=== PATIENT | female | born 1960 | race African-American/Black ===

== ENCOUNTER 2018-01-01 18:54 | Inpatient (IN) | payer MEDICAID ==
[~2018-01-01] VITALS: Ht 167.6 cm; Wt 82.3 kg
[2018-01-01 19:52] LABS: Basophils # (auto) 0 uL; Basophils % (auto) 0.6 % (0.0-2.0); Eosinophils # (auto) 0.2 uL; Eosinophils % (auto) 3.7 % (0.0-7.0); Hematocrit 40.3 % (36.0-46.0); Hemoglobin 13.6 g/dL (12.2-16.2); Lymphocytes # (auto) 2.7 uL; Lymphocytes % (auto) 43.7 % (10.0-50.0); Mean Corpuscular Hemoglobin 29.3 pg (28.0-32.0); Mean Corpuscular Hgb Conc. 33.9 g/dL (32.0-36.0); Mean Corpuscular Volume 86.4 fL (80.0-100.0); Monocytes # (auto) 0.6 uL; Neutrophils # (auto) 2.6 uL; Platelet Count (auto) 170 10^3/uL (140-450); Red Blood Cells 4.66 10^6/uL (4.0-5.20); Red Cell Distribution Width 13.1 % (11.8-14.3); White Blood Cell 6.3 10^3/uL (4.4-10.8)
[2018-01-01 20:04] LABS: INR 1.14 (0.9-1.15); Prothrombin Time 12.1 sec (9.27-12.13)
[2018-01-01 20:16] LABS: Albumin 3.5 g/dL (3.4-5.0); BUN/Creatinine Ratio 14.5; Bilirubin, Total 0.5 mg/dL (0.2-1.0); Calcium 8.6 mg/dL (8.5-10.1); Potassium 3.8 mmol/L (3.5-5.1); Total Protein 8.9 g/dL (6.4-8.2)
[2018-01-01 20:22] LABS: Blood Alcohol < 3.0 mg/dL (0-5)
[2018-01-01 20:54] LABS: Urine Bacteria FEW /hpf (None Seen); Urine Blood 1+ /uL (Negative); Urine Hyaline Cast FEW /lpf (0 - 2); Urine Mucus FEW (None Seen); Urine Specific Gravity 1.024 (1.001-1.035); Urine WBC 7 /hpf (0 - 5)
[2018-01-01 21:15] LABS: Alcohol, Urine < 3.0 mg/dL (0-5); Amphetamine Screen, Urine NEGATIVE (NEGATIVE); Barbiturate Scree,Urine NEGATIVE (NEGATIVE); Benzodiazephine Screen, Urine NEGATIVE (NEGATIVE); Cannabinoid Screen, Urine POSITIVE (NEGATIVE); Cocaine Screen, Urine NEGATIVE (NEGATIVE); Opiate Scree,Urine POSITIVE (NEGATIVE); Phencyclidine Screen, Urine NEGATIVE (NEGATIVE)
[2018-01-01] MEDS ORDERED: ACETAMINOPHEN 325 MG TAB PO ONE (22:00)
[2018-01-01] MEDS ORDERED: LEVOFLOXACIN 750MG 150 ML IV ONE (22:30)
[2018-01-01] MEDS ORDERED: diphenhdrAMINE HCL 50 MG/1 ML VL ONE (22:57)
[2018-01-01] MEDS ORDERED: methylPREDNISolone SOD SUCC 125 MG/2 ML VL IV ONE (23:00)
[2018-01-01] MEDS ORDERED: diphenhdrAMINE HCL 50 MG/1 ML VL IV ONE (23:00)
[2018-01-01] MEDS ORDERED: CIPROFLOXACIN 400MG/200ML 200 ML IV ONE (23:00)
[2018-01-01] MEDS ORDERED: VANCOMYCIN 1GM/250ML 250 ML IV ONE (23:15)
[2018-01-01] MEDS ORDERED: TEMAZEPAM 15 MG CAP PO PRN (23:45)
[2018-01-01] MEDS ORDERED: IBUPROFEN 400 MG TAB PO PRN (23:45)
[2018-01-02 00:50] VITALS: BP 127/69
[2018-01-02 01:14] LABS: Cholesterol 130 mg/dL (< 200); HDL Cholesterol 32 mg/dL (40-59); LDL Cholesterol 88 mg/dL (< 100); Triglycerides 107 mg/dL (< 150)
[2018-01-02] MEDS: ONDANSETRON HCL 4 MG/2 ML VIAL IV PRN ×2 (01:18→22:25)
[2018-01-02] MEDS: traMADol HCL 50 MG TAB PO PRN ×3 (01:21→16:36)
[2018-01-02] MEDS ORDERED: METH10TA6 PO (03:49)
[2018-01-02 05:37] LABS: Basophils # (auto) 0 uL; Basophils % (auto) 0.6 % (0.0-2.0); Eosinophils # (auto) 0 uL; Eosinophils % (auto) 0.4 % (0.0-7.0); Hemoglobin 13.5 g/dL (12.2-16.2); Lymphocytes # (auto) 1.1 uL; Lymphocytes % (auto) 26.6 % (10.0-50.0); Mean Corpuscular Hemoglobin 29.2 pg (28.0-32.0); Mean Corpuscular Hgb Conc. 33.6 g/dL (32.0-36.0); Mean Corpuscular Volume 86.7 fL (80.0-100.0); Monocytes # (auto) 0.1 uL; Monocytes % (auto) 3.6 % (0.0-12.0); Neutrophils # (auto) 2.8 uL; Neutrophils % (auto) 68.8 % (37.0-80.0); Nucleated Red Blood Cells % 0.1 %; Platelet Count (auto) 167 10^3/uL (140-450); Red Blood Cells 4.62 10^6/uL (4.0-5.20); Red Cell Distribution Width 13.3 % (11.8-14.3); White Blood Cell 4.1 10^3/uL (4.4-10.8)
[2018-01-02 05:40] VITALS: BP 102/50
[2018-01-02 06:06] LABS: Albumin 3.1 g/dL (3.4-5.0); BUN/Creatinine Ratio 23.2; Calcium 8.6 mg/dL (8.5-10.1); Potassium 4.2 mmol/L (3.5-5.1)
[2018-01-02 06:08] LABS: Bilirubin, Total 0.5 mg/dL (0.2-1.0); Total Protein 8.3 g/dL (6.4-8.2)
[2018-01-02] MEDS: cefTRIAXone 1GM/10ml IVPUSH 10 ML IV SCH (08:19)
[2018-01-02 08:57] VITALS: BP 103/56
[2018-01-02] MEDS: SODIUM CHLORIDE 0.9% 1,000 ML IV SCH (10:15)
[2018-01-02 11:55] VITALS: BP 111/81
[2018-01-02 21:42] VITALS: BP 109/61
[2018-01-03] MEDS: SODIUM CHLORIDE 0.9% 1,000 ML IV SCH ×2 (02:55→19:35)
[2018-01-03 05:09] VITALS: BP 125/68
[2018-01-03 06:03] LABS: Basophils # (auto) 0 uL; Basophils % (auto) 0.2 % (0.0-2.0); Eosinophils # (auto) 0 uL; Eosinophils % (auto) 0.4 % (0.0-7.0); Hematocrit 38.9 % (36.0-46.0); Hemoglobin 13.1 g/dL (12.2-16.2); Lymphocytes # (auto) 3.4 uL; Lymphocytes % (auto) 31.2 % (10.0-50.0); Mean Corpuscular Hemoglobin 29.3 pg (28.0-32.0); Mean Corpuscular Hgb Conc. 33.6 g/dL (32.0-36.0); Monocytes # (auto) 0.8 uL; Monocytes % (auto) 7.7 % (0.0-12.0); Neutrophils # (auto) 6.5 uL; Neutrophils % (auto) 60.5 % (37.0-80.0); Nucleated Red Blood Cells % 0.2 %; Platelet Count (auto) 192 10^3/uL (140-450); Red Blood Cells 4.47 10^6/uL (4.0-5.20); Red Cell Distribution Width 13.2 % (11.8-14.3); White Blood Cell 10.8 10^3/uL (4.4-10.8)
[2018-01-03 06:23] LABS: Potassium 3.9 mmol/L (3.5-5.1)
[2018-01-03 06:28] LABS: Albumin 3.2 g/dL (3.4-5.0); BUN/Creatinine Ratio 19.4; Calcium 8.2 mg/dL (8.5-10.1)
[2018-01-03 06:31] LABS: Bilirubin, Total 0.4 mg/dL (0.2-1.0); Total Protein 8.5 g/dL (6.4-8.2)
[2018-01-03 08:30] VITALS: BP 118/71
[2018-01-03 09:00] VITALS: BP 118/71
[2018-01-03] MEDS: cefTRIAXone 1GM/10ml IVPUSH 10 ML IV SCH (09:36)
[2018-01-03] MEDS ORDERED: fentaNYL CITRATE 100 MCG/2 ML VL ONE (10:05)
[2018-01-03] MEDS ORDERED: MIDAZOLAM HCL 1MG/1ML-2 ML VIAL ONE (10:05)
[2018-01-03] MEDS: PANTOPRAZOLE 40 MG TAB PO SCH (11:06)
[2018-01-03 13:00] VITALS: BP 120/70
[2018-01-03] MEDS: ONDANSETRON HCL 4 MG/2 ML VIAL IV PRN (14:43)
[2018-01-03] MEDS: traMADol HCL 50 MG TAB PO PRN (14:43)
[2018-01-03 17:00] VITALS: BP 123/65
[2018-01-03] MEDS: MORPHINE SULF INJ 2 MG/ML SYRINGE 1ML IV PRN ×2 (17:50→20:21)
[2018-01-03 22:00] VITALS: BP 122/49
[2018-01-04] MEDS: MORPHINE SULF INJ 2 MG/ML SYRINGE 1ML IV PRN ×2 (00:54→06:58)
[2018-01-04 05:00] VITALS: BP 106/53
[2018-01-04 08:00] VITALS: BP 111/60
[2018-01-04 08:00] LABS: Albumin 2.9 g/dL (3.4-5.0); BUN/Creatinine Ratio 16.1; Bilirubin, Total 0.8 mg/dL (0.2-1.0); Potassium 3.9 mmol/L (3.5-5.1); Total Protein 7.3 g/dL (6.4-8.2)
[2018-01-04 09:04] VITALS: BP 111/60
[2018-01-04 09:13] LABS: Hepatitis B Surface Antibody Negative
[2018-01-04] MEDS: cefTRIAXone 1GM/10ml IVPUSH 10 ML IV SCH (09:25)
[2018-01-04] MEDS: PANTOPRAZOLE 40 MG TAB PO SCH (09:25)
[2018-01-04 09:47] LABS: Hepatitis A Total Antibody Negative
[2018-01-04] MEDS ORDERED: traMADol HCL 50 MG TAB PO PRN (11:00)
[2018-01-04 12:45] LABS: Hepatitis B Core Total AB Negative
[2018-01-04 12:46] LABS: Hepatitis B Surface Antigen Negative (Negative); Hepatitis C Antibody Negative (Negative)
[2018-01-04 13:48] VITALS: BP 116/68
[2018-01-04 17:05] VITALS: BP 135/70
[2018-01-04] MEDS: SODIUM CHLORIDE 0.9% 1,000 ML IV SCH (17:53)
[2018-01-04 22:11] VITALS: BP 140/65
[2018-01-05] MEDS: SODIUM CHLORIDE 0.9% 1,000 ML IV SCH (04:55)
[2018-01-05 04:59] VITALS: BP 135/70
[2018-01-05 07:54] LABS: Basophils # (auto) 0 uL; Basophils % (auto) 0.4 % (0.0-2.0); Eosinophils # (auto) 0.2 uL; Eosinophils % (auto) 3.9 % (0.0-7.0); Hematocrit 38.7 % (36.0-46.0); Hemoglobin 13.1 g/dL (12.2-16.2); Lymphocytes # (auto) 2.5 uL; Lymphocytes % (auto) 43.1 % (10.0-50.0); Mean Corpuscular Hemoglobin 28.9 pg (28.0-32.0); Mean Corpuscular Hgb Conc. 33.9 g/dL (32.0-36.0); Mean Corpuscular Volume 85.1 fL (80.0-100.0); Monocytes # (auto) 0.6 uL; Monocytes % (auto) 10.6 % (0.0-12.0); Neutrophils # (auto) 2.4 uL; Nucleated Red Blood Cells % 0.1 %; Platelet Count (auto) 147 10^3/uL (140-450); Red Blood Cells 4.55 10^6/uL (4.0-5.20); Red Cell Distribution Width 13.2 % (11.8-14.3); White Blood Cell 5.8 10^3/uL (4.4-10.8)
[2018-01-05 08:00] VITALS: BP 131/77
[2018-01-05 08:14] LABS: BUN/Creatinine Ratio 11.9; Calcium 8.3 mg/dL (8.5-10.1); Potassium 3.9 mmol/L (3.5-5.1)
[2018-01-05 08:17] LABS: Bilirubin, Total 0.7 mg/dL (0.2-1.0); Total Protein 7.9 g/dL (6.4-8.2)
[2018-01-05 08:46] VITALS: BP 131/77
[2018-01-05] MEDS: cefTRIAXone 1GM/10ml IVPUSH 10 ML IV SCH (09:03)
[2018-01-05] MEDS: PANTOPRAZOLE 40 MG TAB PO SCH (11:00)
[2018-01-05 13:00] VITALS: BP 109/64
[2018-01-05 15:41] VITALS: BP 109/64
[2018-01-05 17:00] VITALS: BP 125/65
== END 2018-01-05 18:13 | disposition home or self-care (01) | DRG 463 ==
LOC: EDUNIT# 18:54 → EDBD 18:54 → ER 18:54 → TELE 18:55 → TELE-CENTR 01-02 00:43
PROVIDERS: ADMIT Nurse Practitioner Family; ATTEND Internal Medicine
PROC: 0FB03ZX Excision of Liver, Percutaneous Approach, Diagnostic (ICD-10-PCS; principal; 2018-01-03)
PROC: 4A00X4Z Measurement of Central Nervous Electrical Activity, External Approach (ICD-10-PCS; 2018-01-04)
DX: N30.00 Acute cystitis without hematuria (principal); G93.41 Metabolic encephalopathy; E44.0 Moderate protein-calorie malnutrition; K74.60 Unspecified cirrhosis of liver; E05.00 Thyrotoxicosis with diffuse goiter without thyrotoxic crisis or storm; R51 Headache; F11.10 Opioid abuse, uncomplicated; F12.10 Cannabis abuse, uncomplicated; R55 Syncope and collapse; E03.9 Hypothyroidism, unspecified; F17.200 Nicotine dependence, unspecified, uncomplicated; E78.5 Hyperlipidemia, unspecified; Z88.1 Allergy status to other antibiotic agents; Z68.29 Body mass index [BMI] 29.0-29.9, adult; Z88.0 Allergy status to penicillin; Z98.51 Tubal ligation status; Z80.1 Family history of malignant neoplasm of trachea, bronchus and lung; Z83.1 Family history of other infectious and parasitic diseases
CPT/HCPCS: 10022; 36415; 70450; 70551; 71045; 77012; 80053; 80061; 80307; 80320; 81001; 82140; 83735; 84443; 84484; 85025; 85610; 85730; 86704; 86706; 86708; 86803; 87086; 87340; 93005; 93886; 94761; 95819; 96374; 96375; A6257; J0696; J1956; J2250; J2405